=== PATIENT | male | born 1980 | race Caucasian/White ===

== ENCOUNTER 2017-02-20 15:47 | Emergency (ER) | payer OTHER ==
[~2017-02-20] VITALS: Ht 175.3 cm; Wt 130.0 kg
[2017-02-20] MEDS ORDERED: CLONAZEPAM1 MG PO (16:54)
[2017-02-20] MEDS ORDERED: ZOLOFT50 MG PO (16:58)
[2017-02-20] MEDS ORDERED: BUDEPRION150 MG PO (16:58)
[2017-02-20 16:59] LABS: HEMATOCRIT 37.1 % (39.0-50.0); HEMOGLOBIN 12.4 g/dl (14.0-18.0); IMMATURE GRANULOCYTES 0.6 % (0.0-1.0); MEAN CELL VOLUME 81.7 fL CALC (80.0-100.0); MEAN CORPUSCULAR HGB 27.3 pG CALC (26.0-32.0); MEAN CORPUSCULAR HGB CONC 33.4 g/L CALC (32.0-36.0); NEUT# 12.59 thou/uL (1.82-7.42); RED BLOOD COUNT 4.54 mill/uL (4.70-6.10); RED CELL DISTRI WIDTH 14.3 % (11.5-15.5)
[2017-02-20 17:13] LABS: ALBUMIN 4.2 g/dL (3.2-5.0); ALKALINE PHOSPHATASE 61 u/l (38-126); ANION GAP 16 (6-22 (CALC)); BILIRUBIN, TOTAL 0.6 mg/dL (0.0-1.4); BUN 18 mg/dL (9-20); BUN/CREATININE RATIO 14 (12-20 (CALC)); CALCIUM 9.3 mg/dL (8.4-10.2); CARBON DIOXIDE 24 mmol/l (22-30); CHLORIDE 103 mmol/l (95-108); CREATININE 1.3 mg/dL (0.7-1.3); GFR > 60 ML/MIN (>=60 (CALC)); GFR FOR AFR.AMER. > 60 ML/MIN (>=60 (CALC)); GLUCOSE 109 mg/dL (75-110); SGOT/AST 25 u/l (17-59); SGPT/ALT 38 u/l (21-72); SODIUM 140 mmol/l (137-146); TOTAL PROTEIN 7.3 g/dL (6.3-8.2)
[2017-02-20] MEDS ORDERED: ZOFRAN ODT4 MG PO (18:23)
[2017-02-20] MEDS ORDERED: CIPROFLOXACN500 MG PO (18:23)
[2017-02-20 18:24] LABS: URINE BILIRUBIN - DIPSTICK NEGATIVE (NEGATIVE); URINE BLOOD DIPSTICK NEGATIVE (NEGATIVE); URINE CLARITY CLEAR; URINE COLOR YELLOW; URINE GLUCOSE - DIPSTICK NEGATIVE (NEGATIVE); URINE KETONE NEGATIVE (NEGATIVE); URINE LEUK ESTERASE NEGATIVE (NEGATIVE); URINE NITRITE - DIPSTICK NEGATIVE (Negative); URINE PROTEIN - DIPSTICK TRACE mg/dL (NEG-TRACE); URINE SPECIFIC GRAVITY >=1.030; URINE UROBILINOGEN - DIPSTICK 0.2 E.U./dL (0.2)
[2017-02-20 18:26] LABS: BARBITURATES NEGATIVE (NEGATIVE); COCAINE NEGATIVE (NEGATIVE); METHADONE NEGATIVE (NEGATIVE); OXCYCODONE NEGATIVE (NEGATIVE); TETRAHYDROCANNABIONOL NEGATIVE (NEGATIVE); TRICYLIC ANTIDEPRESSANTS NEGATIVE (NEGATIVE)
[2017-02-20 18:30] VITALS: BP 115/73
== END 2017-02-20 18:39 | disposition home or self-care (01) | DRG 149 ==
LOC: ED 15:47
PROVIDERS: Emergency Medicine
DX: R42 Dizziness and giddiness (principal); D72.829 Elevated white blood cell count, unspecified; R51 Headache; R11.2 Nausea with vomiting, unspecified; R19.7 Diarrhea, unspecified; R00.2 Palpitations; X30.XXXA Exposure to excessive natural heat, initial encounter; Y93.53 Activity, golf; Y92.39 Other specified sports and athletic area as the place of occurrence of the external cause